=== PATIENT | female | born 1980 | race African-American/Black ===

== ENCOUNTER 2021-12-21 08:30 | Emergency (ER) | payer SELFPAY ==
[~2021-12-21] VITALS: Ht 160 cm; Wt 97.5 kg
--- NOTE | 2021-12-21 09:10 | NUR ---
pt roomed, connected to monitor and is resting comfortably
[2021-12-21 09:27] LABS: HEMATOCRIT 33.5 % (31.2-41.9); MEAN CORPUSCULAR HEMOGLOBIN 27.6 uug (24.7-32.8); MEAN CORPUSCULAR VOLUME 82.9 fL (75.5-95.3); PLATELET COUNT (AUTO) 316 K/uL (179-408)
[2021-12-21 09:45] LABS: CREATININE 0.8 mg/dL (0.6-1.3); POTASSIUM 3.4 mmol/L (3.5-5.1)
[2021-12-21 09:50] LABS: BILIRUBIN,TOTAL 0.2 mg/dL (0.2-1.0); TOTAL PROTEIN, SERUM 7.4 g/dL (6.4-8.2)
--- NOTE | 2021-12-21 10:46 | NUR ---
Patient discharged to home in stable condition. Written and verbal after care instructions given. Patient verbalizes understanding of instructions. Stressed follow up or return to ER for worsening s/s.
== END 2021-12-21 10:46 | disposition home or self-care (01) ==
LOC: ER 08:30
DX: R20.0 Anesthesia of skin (principal); Z79.01 Long term (current) use of anticoagulants; Q21.1 Atrial septal defect
CPT/HCPCS: 36415; 85025; 93005; A4663